=== PATIENT | female | born 2000 | race Caucasian/White ===

== ENCOUNTER 2024-07-15 12:55 | Outpatient (CLI) | payer BC, SELFPAY | END 2024-07-15 12:56 | disposition home or self-care (01) | LOC: US 12:55 | PROVIDERS: Visit Provider Advanced Practice Midwife | DX: Z34.91 Encounter for supervision of normal pregnancy, unspecified, first trimester (principal); Z3A.08 8 weeks gestation of pregnancy | CPT/HCPCS: 76817; 83021; 86703; 86706; 86803; 86850; 86900; 86901; 87086; 87340; 87491; 87591; 88142 ==

== ENCOUNTER 2024-07-15 13:58 | Outpatient (CLI) | payer BC, SELFPAY ==
[2024-07-15 17:50] LABS: Chlamydia DNA Amplified* NOT DETECTED (No Detected); GC DNA Amplified* NOT DETECTED (No Detected)
== END 2024-07-15 13:59 | disposition home or self-care (01) ==
PROVIDERS: Visit Provider Advanced Practice Midwife
DX: Z34.91 Encounter for supervision of normal pregnancy, unspecified, first trimester (principal); Z3A.08 8 weeks gestation of pregnancy
CPT/HCPCS: 83020; 83021; 85660; 86592; 86703; 86704; 86706; 86762; 86787; 86803; 86850; 86900; 86901; 87086; 87340; 87491; 87591; 87624; 87625; 88141; 88142

== ENCOUNTER 2024-07-22 16:15 | Emergency (ER) | payer BC, SELFPAY ==
[2024-07-22 17:12] VITALS: BP 128/80; PULSE 100; RESP 18; TEMP 37.3; O2SAT 98; BMI 26.3
--- NOTE | 2024-07-22 17:19 | CRLHL7_ITS ---
For Patients: As a result of the Cures Act, medical imaging exams and procedure reports are released immediately into your electronic medical record. You may view this report before your referring provider. If you have questions, please contact your health care provider. INDICATION: Vaginal bleeding. COMPARISON: OB ultrasound 07/15/2024. TECHNIQUE: Real-time albarran-scale imaging of the pelvis was performed. FINDINGS: Sonographic imaging demonstrates a single living intrauterine gestation. The embryo has a regular cardiac rate measuring 176 beats per minute. The embryo`s crown-rump length measures 2.4 cm which corresponds to a gestational age of 9 weeks 1 day with sonographic due date 02/23/2025. There is a normal-appearing yolk sac. The placenta has not yet developed. No evidence of a perigestational hemorrhage. The cervix appears closed. The right ovary was not visualized. The left ovary measures 4.9 x 3.7 x 4.4 cm. There is a 3.7 cm corpus luteal cyst in the left ovary which is not significantly changed in size since prior exam. No free fluid in the pelvic cul-de-sac. IMPRESSION: 1. Single living intrauterine gestation corresponding to an ultrasound gestational age of 9 weeks 1 day with sonographic due date 02/23/2025. 2. Similar corpus luteal cyst in the left ovary. 3. No findings to explain bleeding. Dictated by Davina Stewart MD @ 07/22/2024 7:10:40 PM (Electronically Signed)
--- NOTE | 2024-07-22 19:11 | ED.GENADULT ---
HPI - General Adult General Date Seen: 07/22/24 Chief complaint: Vaginal Bleeding Stated complaint: 9 wks , bleeding Time Seen by Provider: 07/22/24 18:52 History of Present Illness HPI narrative: This is a very pleasant generally healthy 24-year-old female. She is at approximately 9 weeks based on her last menstrual cycle and results of a or 7 that was done in the [facility] last week that confirmed an 18 week gestation intrauterine . She has no previous gynecologic problems. She is not currently on any medications other than vitamins. 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 After school today, shortly after 3:00 p.m. she noted the onset of liquidy vaginal bleeding. She felt some liquid in her pants and initially thought that she might have urinated in her pants but when she checked actually had vaginal bleeding. She is not having any vaginal pain. No pelvic cramping. No abdominal pain. No flank pain. She is not lightheaded or dizzy. After the initial gush of blood she still has some very light ongoing bleeding, but minimal. She has no history of other vaginal bleeding with this . She had a checkup last week and had labs and ultrasound that looked good. In the medical record I can see that she had labs in the OB clinic on 07/15/2024. WBC 7.1, hemoglobin 14.1, platelet count 244. Blood type was O-positive. She also had a Pap smear and alcohol 3 cervical swab dizzy that she reports was normal. Related Data Home Medications ?Medication ?Instructions ?Recorded ?Confirmed ascorbic acid (vitamin C) 500 mg mg PO 07/15/24 07/15/24 capsule calcium 500 mg-vitamin D3 1,000 tab PO 07/15/24 07/15/24 unit-vitamin K 40 mcg chewable tablet magnesium 250 mg tablet 250 mg PO QDAY 07/15/24 07/22/24 vitamin no.167-folic acid tab PO 07/15/24 07/15/24 400 mcg-dha 25 mg chewable tablet (One-A-Day ) Allergies Allergy/AdvReac Type Severity Reaction Status Date / Time No Known Drug Allergies Allergy Verified 07/22/24 17:19 [facility] Medical History (Updated 07/22/24 @ 19:20 by Grant Bettencourt MD) History of anxiety ?Z86.59 - Personal history of other mental and behavioral disorders (ICD-10) Surgical History (Updated 07/15/24 @ 14:22 by Raul Hooker CNM) [place] teeth extracted ?K08.409 - Partial loss of teeth, unspecified cause, unspecified class (ICD-10) Family History (Updated 07/15/24 @ 14:28 by Raul Hooker CNM) Father Cardiovascular disease Paternal Grandmother Breast cancer Social History (Updated 07/15/24 @ 15:57 by Raul Hooker CNM) Narrative: SOCIAL? ? Education: Bachelor's degree? ? Work: teacher at [employer] ? Partner: Raz? works as a master pilot? Lives with: Raz ? Pets: 2 dogs joseph doodles Abuse: Denies past ? Unable to assess current, partner present? ? Special Diet: Denies? ? Ok with a blood transfusion: yes? ? Culture or pentecostalism beliefs: denies? RISK FACTORS? ? Exercise Times/wk: 5 days a week for 30 minutes, [employer]? ? Depression/Anxiety: anxiety more than depression? ? Previous Treatments on sertraline for about 1 year been off for about 1 year ? Therapy NA JANY: 0 PHQ 9: 3? ? Seat Belt Use: Routinely ? Smoking: Denies past/present? ? Alcohol/day: Denies while ? ?Rare use when not Caffeine: coffee but quit in May? ? Drug Use: Denies past/present? What is your current living situation?: I presently have a place to live Problems where you live: no known problems In the past 12 months, utilities in danger of being shut off: no In past 12 months, lack of transportation kept you from medical appts, meetings, work, or getting things needed for daily living: no In the past 12 mos, have been you worried that your food would run out before you had money to buy more?: never true In the past 12 mos, the food you bought just didn't last and you didn't have money to buy more?: never true How often does anyone, including family, friends and others, physically hurt you: never How often does anyone, including family, friends and others, insult or talk down to you: never How often does anyone, including family, friends and others, threaten you with harm: never How often does anyone, including family, friends and others, scream or curse at you: never Exam Narrative: Exam Narrative: Constitutional: Appears well-developed and well-nourished. Alert. Conversant. Non toxic. HENT: Head: Atraumatic. Nose: Nose normal. Mouth/Throat: Oral mucosa is clear and moist. no trismus. Eyes: Conjunctivae normal. EOM normal. Pupils equal, round, and reactive to light. No scleral icterus. Neck: Normal range of motion. Neck supple. No tracheal deviation present. Cardiovascular: Normal rate, regular rhythm. No gallop. No friction rub. No murmur heard. Symmetric radial artery pulses Pulmonary/Chest: Effort normal. No stridor. No respiratory distress. No wheezes. No rales. No rhonchi . No tenderness. Abdominal: Soft. No distension. No mass. No tenderness. No rebound. No guarding. No CVA tenderness Musculoskeletal: RUE: Normal range of motion. No tenderness. No deformity LUE: Normal range of motion. No tenderness. No deformity RLE: Normal range of motion. No edema. No tenderness. No deformity LLE: Normal range of motion. No edema. No tenderness. No deformity Neurological: Alert and oriented to person, place, and time. Normal strength. CN II-VII intact. No sensory deficit. GCS eye subscore is 4. GCS verbal subscore is 5. GCS motor subscore is 6. Normal coordination Skin: Skin is warm and dry. No rash noted. No pallor. Normal capillary refill. Psychiatric: Normal mood. Normal affect. Const: Vital Signs, click to edit/add: Vital Signs - 24 hr 07/22/24 17:12 Temperature 99.2 F Pulse Rate [Right Pulse Oximeter] 100 Respiratory Rate 18 Blood Pressure [Ri ght Upper Arm] 128/80 Pulse Oximetry 98 Oxygen Delivery Me thod Room Air Course Vital Signs Vital signs: Initial Vital Signs Temperature 99.2 F 07/22/24 17:12 Temperature Source Temporal Artery Scan 07/22/24 17:12 Pulse Rate 100 07/22/24 17:12 Respiratory Rate 18 07/22/24 17:12 Blood Pressure 128/80 07/22/24 17:12 Blood Pressure Mean 96 07/22/24 17:12 Blood Pressure Position Sitting 07/22/24 17:12 Pulse Oximetry 98 07/22/24 17:12 Oxygen Delivery Method Room Air 07/22/24 17:12 Vital Signs Temperature 99.2 F 07/22/24 17:12 Pulse Rate 100 07/22/24 17:12 Respiratory Rate 18 07/22/24 17:12 Blood Pressure 128/80 07/22/24 17:12 Pulse Oximetry 98 07/22/24 17:12 Oxygen Delivery Method Room Air 07/22/24 17:12 Temperature 99.2 F 07/22/24 17:12 Pulse Rate 100 07/22/24 17:12 Respiratory Rate 18 07/22/24 17:12 Blood Pressure 128/80 07/22/24 17:12 Pulse Oximetry 98 07/22/24 17:12 Oxygen Delivery Method Room Air 07/22/24 17:12 Medical Decision Making MDM Narrative Medical decision making narrative: This female patient presents for evaluation of he is able vaginal bleeding. I considered a broad differential including ectopic , ovarian cyst, UTI, pyelonephritis, subchorionic hemorrhage, uterine bleeding, active miscarriage, constipation, etc. she is not having any abdominal pain or pelvic cramping to raise risk for ovarian torsion, or non gynecologic pathology such as appendicitis cholecystitis, volvulus, intraabdominal abscess, among others. In this patient, there are no signs of serious etiologies of abdominal pain. blood type is O-positive. The workup here suggests threatened miscarriage. Pelvic ultrasound confirms a live IUP with appropriate growth when compared last week and a normal heart rate. There is no a subchorionic hemorrhage. At this point, patient is hemodynamically stable, hemoglobin is reassuring, and bleeding is not predicted to become life threatening. Plan is home, close follow-up with OB for recheck and repeat ultrasound, threatened miscarriage precautions, and return to ED for worsening pain, heavy vaginal bleeding (more than 1 pad soaked every hour). Questions were answered. Imaging Data US pelvic: Attestation: I have reviewed the pertinent imaging results. Radiologist's impression: IMPRESSION: 1. Single living intrauterine gestation corresponding to an ultrasound gestational age of 9 weeks 1 day with sonographic due date 02/23/2025. 2. Similar corpus luteal cyst in the left ovary. 3. No findings to explain bleeding. Discharge Plan Discharge Clinical Impression: Threatened Patient Disposition: Home, Self-Care Condition: Stable Instructions: Threatened Miscarriage (ED) Additional Instructions: As we discussed, so for your ultrasound looks reassuring. However, please monitor your symptoms carefully. Please follow-up with your OB team within 1 week for another repeat ultrasound. If you have worsening bleeding, new pelvic cramping, fluid leakage, worsening abdominal pain or fever or lightheadedness, or any problems, come back to the ER right away to be rechecked Prescriptions: No Action One-A-Day 400 mcg- 25 mg tablet,chewable PO calcium-vitamin D3-vitamin K 500 mg-1,000 unit-40 mcg tablet,chewable PO ascorbic acid (vitamin C) 500 mg capsule PO magnesium 250 mg tablet 250 mg PO QDAY Follow Up/Referrals: Provider,Not a Local [Primary Care Provider] - Stand Alone Forms: [facility] Instructions
[2024-07-22 19:44] VITALS: BP 121/74; PULSE 90; RESP 18; TEMP 37.3; O2SAT 98
[2024-07-22 19:45] VITALS: BP 121/74; PULSE 90; RESP 18; TEMP 37.3
== END 2024-07-22 19:45 | disposition home or self-care (01) ==
LOC: ED 19:28
PROVIDERS: Emergency Provider Emergency Medicine
DX: O20.0 Threatened abortion (principal); Z3A.09 9 weeks gestation of pregnancy
CPT/HCPCS: 76817; 99282; 99283

== ENCOUNTER 2024-07-25 10:54 | Outpatient (CLI) | payer BC, SELFPAY ==
--- NOTE | 2024-07-25 11:15 | CRLHL7_ITS ---
For Patients: As a result of the Century Cures Act, medical imaging exams and procedure reports are released immediately into your electronic medical record. You may view this report before your referring provider. If you have questions, please contact your health care provider. OB ULTRASOUND LESS THAN 14 WEEKS, 07/25/2024 CLINICAL HISTORY: Followup previous ER visit, vaginal bleeding. TECHNIQUE: Real time albarran scale imaging of the fetus was performed transabdominally. COMPARISON: 07/22/2024. FINDINGS: LMP: . RAJESH by LMP: 02/23/2025. GA: 9 weeks 4 days. RAJESH by US: 02/23/2025. GA: 9 weeks 1 day. CRL: 2.8 cm, 9 weeks 4 days. RAJESH: 02/23/2025. FHR: 178 bpm. GEST SAC: 4.0 cm, appears within normal limits. YOLK SAC: 3.2 mm, appears within normal limits. RIGHT OVARY: Not visualized. LEFT OVARY: 5.5 x 4.2 x 3.5 cm. CL. IMPRESSION: 1. Single living intrauterine with sonographic gestational age 9 weeks 4 days and sonographic due date 02/23/2025. 2. Simple left ovarian cyst measures 3.6 x 3.3 x 3.5 cm. Tommy Wright M.D. Diagnostic Radiologist [email or web address] Transcribed: 1:28 pm DW/Dictated by: Tommy Wright MD @ 07/25/2024 12:15:00 PM (Electronically Signed)
== END 2024-07-25 10:55 | disposition home or self-care (01) ==
LOC: US 10:55
PROVIDERS: Visit Provider Obstetrics & Gynecology
DX: O20.9 Hemorrhage in early pregnancy, unspecified (principal); O34.81 Maternal care for other abnormalities of pelvic organs, first trimester; N83.202 Unspecified ovarian cyst, left side; Z3A.09 9 weeks gestation of pregnancy
CPT/HCPCS: 76801

== ENCOUNTER 2024-08-30 15:57 | Outpatient (CLI) | payer BC, SELFPAY | END 2024-08-30 15:58 | disposition home or self-care (01) | LOC: NFLDREF 09-03 06:11 | PROVIDERS: Visit Provider Advanced Practice Midwife | DX: Z20.828 Contact with and (suspected) exposure to other viral communicable diseases (principal) | CPT/HCPCS: 86747 ==

== ENCOUNTER 2024-10-15 10:57 | Outpatient (CLI) | payer BC, SELFPAY ==
--- NOTE | 2024-10-15 11:15 | CRLHL7_ITS ---
For Patients: As a result of the Century Cures Act, medical imaging exams and procedure reports are released immediately into your electronic medical record. You may view this report before your referring provider. If you have questions, please contact your health care provider. OB ULTRASOUND GREATER THAN 14 WEEKS, 10/16/2024 CLINICAL HISTORY: anatomy survey. COMPARISON: 07/15/2024, 07/22/2024. TECHNIQUE: Real time albarran scale imaging of the fetus was performed. Evaluate anatomy. Transabdominal imaging performed. FINDINGS: RAJESH by LMP: 02/23/2025. GA: 21 weeks 2 days. POSITION: Vertex. PLACENTA/CORD: Placenta Position: Anterior. Technique: TA. Placenta tip to internal OS: 11.8 cm. Umbilical Cord: 3 vessel cord. Placental Insertion: Central. CERVIX: Visualized. Technique: TA. Length of closed cervix: 3.9 cm. AMNIOTIC FLUID: 5.6 cm SDP. OBSERVED STRUCTURES: Calvarium/Spine: 2.4 cm, 23 weeks 6 days Cisterna Magna 3.6 mm Nuchal Fold 3.8 mm Lateral Ventricle 6.3 mm CSP Midline Falx Choroid Plexus Spine Abdomen: Stomach Abd Cord Insert Urinary Bladder Kidneys Diaphragm Face: Nose/Lips Orbital View Profile Limbs: Upper Extremities Lower Extremities Hands Feet Vascular: 4 Ch Heart LVOT RVOT 3VV 3VTV BIOMETRY: BPD: 5.0 cm, 21 weeks 1 day. 43.6% HC: 18.8 cm, 21 weeks 0 days. 30.2% AC: 16.9 cm, 21 weeks 6 days. 63.5% FL: 3.8 cm, 22 weeks 0 days. 67.0% FL/AC: 22.29% HC/AC Ratio: 1.11. Heart Rate: 152 bpm. Age by this US: 22 weeks 0 days. RAJESH by this US: 02/18/2025. EFW: 455.16 grams, 1 lb 0 oz. Percentile by RAJESH: 74.3% IMPRESSION: 1. Sonographic gestational age 22 weeks 0 days and sonographic due date 02/18/2025. Sonographic age is 5 days ahead of the clinical age. 2. Estimated weight 74th percentile. Abdominal circumference 64th percentile. 3. Normal anatomic survey. Tommy Wright M.D. Diagnostic Radiologist [email or web address] [email or web address] Transcribed: 9:44 am DW/Dictated by: Tommy Wright MD @ 10/16/2024 6:26:00 AM (Electronically Signed)
== END 2024-10-15 10:58 | disposition home or self-care (01) ==
LOC: US 10:58
PROVIDERS: Visit Provider Advanced Practice Midwife
DX: Z34.92 Encounter for supervision of normal pregnancy, unspecified, second trimester (principal); Z3A.22 22 weeks gestation of pregnancy
CPT/HCPCS: 76805